=== PATIENT | female | born 1985 | race Caucasian/White ===

== ENCOUNTER → 2021-10-22 07:11 | Outpatient (CLI) | payer OTHER, SELFPAY ==
--- NOTE | 2021-10-22 07:14 | DI.US.S_ITS ---
PROCEDURE: US OB >= 14 WEEKS FETUS INDICATIONS: ANATOMY OUTSIDE/PRIOR DATING DATA: transfer T5 embryo on 06/11/2021. Estimated date of delivery 02/27/2022. First dating scan (date and location): 10/22/2021 [facility]. Estimated date of delivery (CIARAN) from first dating scan: 02/23/2022 The calculations are made using the clinical ( transfer) CIARAN of 02/27/2022. TECHNIQUE: Real-time scanning was performed of the fetus, with image documentation and biometric measurements. COMPARISON: None. FINDINGS: General: A single living intrauterine gestation is present. Presentation: Vertex. Placenta: Placental position is posterior, without previa. Amniotic fluid index: 11.7 cm, normal range is 5-24 cm. Single deepest vertical pocket is 4.5 cm. heart rate: 139 beats per minute. Maternal cervical canal: 3.9 cm long. Normal lower limit is 2.5 cm. biometrics: Biparietal diameter: 5.3 cm, 22 weeks 0 days Head circumference: 19.8 cm, 22 weeks 0 days Abdominal circumference: 17.8 cm, 22 weeks 5 days Femur length: 3.9 cm, 22 weeks 3 days Clinically estimated gestational age: 21 weeks 5 days Composite gestational age from present scan: 22 weeks 2 days Estimated weight and percentile: 506 g, 82 percentile Anatomic survey: Neuro: Ventricles are non-dilated at less than 10 mm. Cisterna magna is normal at 3-11 mm. Cerebellum is normal in size and morphology. Nuchal skin fold: Normal at less than 6 mm between 14-21 weeks gestational age. Face: Nose and lips, facial profile are normal. Spine: No evidence for spina bifida. Heart: 4-chambered heart is present, with normal ventricular outflow tracts. Diaphragm: Diaphragm is intact. Stomach: Left-sided stomach is present. Kidneys: No hydronephrosis. Normal is less than 5 mm in 2nd trimester, less than 7 mm in 3rd trimester. Cord: 3-vessel cord has orthotopic insertion. Bladder: Normal in size. Extremities: All 4 extremities identified. IMPRESSION: 1. Morgan living intrauterine at 22 weeks 2 days based on today's ultrasound. This is concordant with the prior clinical dating. Fetus is in the 80 second percentile for weight. 2. Normal placenta and amniotic fluid. 3. Normal and complete anatomic survey. We strive to produce accurate, complete, and clear reports of imaging services. To assist us in improving patient care, this report was composed using standard report templates and voice recognition software. Therefore, it may contain abnormal punctuation, insertions and/or omissions. Occasional wrong-word or sound-alike substitutions may occur. Though we review the report and make efforts to correct it, we do recommend that the report be read carefully in proper context to recognize any text inaccuracies. Dictated by: Jordi Mao M.D. on 10/22/2021 at 9:14 Approved by: Jordi Mao M.D. on 10/22/2021 at 9:21
== END ==
PROVIDERS: PCP Nurse Practitioner Family; Referring Provider Obstetrics & Gynecology; Visit Provider Obstetrics & Gynecology
DX: Z34.82 Encounter for supervision of other normal pregnancy, second trimester (principal); Z3A.22 22 weeks gestation of pregnancy
CPT/HCPCS: 76811

== ENCOUNTER → 2021-11-18 11:08 | Outpatient (CLI) | payer OTHER, SELFPAY ==
[2021-11-18 12:05] LABS: Add Manual Diff / Slide Review NO; Basophils Absolute Auto 0 /uL (0-100); Basophils Percent Auto 0.2 % (0-2); Eosinophils Absolute Auto 0 /uL (0-450); Eosinophils Percent Auto 0.5 % (2-4); Hemoglobin 11.6 g/dL (12.0-16.0); Lymphocytes Absolute Auto 1900 /uL (1100-4500); Lymphocytes Percent Auto 22.3 % (25-40); Mean Corpuscular HGB Conc 34.2 % (30-36); Mean Corpuscular Hemoglobin 28.8 PG (26-34); Mean Corpuscular Volume 84.2 fL (80-100); Monocytes Absolute Auto 500 /uL (0-900); Monocytes Percent Auto 5.8 % (3-14); Neutrophils Absolute Auto 6100 /uL (1500-7000); Neutrophils Percent Auto 71.2 % (50-75); Platelet Count 172 X10^3/uL (150-400); Red Blood Cell Count 4.03 X10^6/uL (4.0-5.2); Red Cell Distribution Width 14.2 % (11.6-14.8); White Blood Cell Count 8.5 X10^3/uL (4.5-11.0)
[2021-11-18 13:52] LABS: Free T4, Direct Thyroxine 0.88 ng/dL (0.78-2.19)
[2021-11-18 14:06] LABS: Thyroid Stimulating Hormone 1.99 uIU/mL (0.47-4.68)
== END ==
PROVIDERS: PCP Nurse Practitioner Family; Referring Provider Obstetrics & Gynecology; Visit Provider Obstetrics & Gynecology
DX: Z34.82 Encounter for supervision of other normal pregnancy, second trimester; E03.9 Hypothyroidism, unspecified
CPT/HCPCS: 36415; 84439; 84443; 85025

== ENCOUNTER → 2021-12-05 12:24 | Outpatient (CLI) | payer OTHER, SELFPAY ==
[2021-12-05 14:08] LABS: Hematocrit 34.3 % (36-46); Hemoglobin 11.5 g/dL (12.0-16.0)
[2021-12-05 14:26] LABS: GTT (PREG) 1 Hour PP 50gm Dose 105 mg/dL (76-139)
== END ==
PROVIDERS: PCP Nurse Practitioner Family; Referring Provider Obstetrics & Gynecology; Visit Provider Obstetrics & Gynecology
DX: Z34.82 Encounter for supervision of other normal pregnancy, second trimester (principal); Z3A.26 26 weeks gestation of pregnancy
CPT/HCPCS: 36415; 82950; 85014; 85018

== ENCOUNTER → 2022-02-03 13:23 | Outpatient (CLI) | payer OTHER, SELFPAY ==
[2022-02-04 13:55] LABS: Strep Grp B PCR NEG for Grp B Strep
== END ==
PROVIDERS: PCP Nurse Practitioner Family; Visit Provider Obstetrics & Gynecology
DX: Z34.83 Encounter for supervision of other normal pregnancy, third trimester (principal); Z3A.36 36 weeks gestation of pregnancy
CPT/HCPCS: 87653

== ENCOUNTER 2022-02-10 10:57 | Outpatient (CLI) | payer OTHER, SELFPAY ==
--- NOTE | 2022-02-10 11:40 | PM.OBTRLD ---
Visit Information Visit Information Date of evaluation: 02/10/22 Primary OB Provider: Emelyn Albrecht Reason for Evaluation: Yes non-stress test non-stress test reason: decreased movement Comments/Additional reasons for admission: 36yo P1 @37 weeks gestation s/p 8/8 BPP, for NST for decreased movement x1 week. Vital Signs Vital Signs: 115/70, HR 72 PFSH Medical History (Updated 11/17/21 @ 13:11 by Romelia Elena) Hypothyroid (~2016) Mononucleosis (~2003) Shingles (~1998) Surgical History (Updated 11/17/21 @ 13:11 by Romelia Elena) Anesthesia delivery delivered (~02/2019) H/O dilation and curettage (~12/2020) History of tonsillectomy (~2003) Uterine polyp (~05/2021) [place] teeth extracted (~01/2004) Family History (Updated 11/17/21 @ 13:13 by Romelia Elena) Mother No problems noted. Father Mitral valve disorder Hypothyroid Heart murmur Grandmother Type 2 diabetes, diet controlled Grandfather Complication of cardiac bypass Grandmother Status post cardiac surgery Breast cancer History of mastectomy, total Grandfather Colon cancer Social History marital status: number of children: 1 household members: spouse and children lives independently: Yes caregiver/support person: No housing: house pets and animals: Yes (1 dog, no cats. ) education level: college (BS Engineering) occupational status: employed (from home.) current occupational exposures/hazards: No lora/methodist: [employer] special lora needs: No seatbelt use: always do you feel safe at home: Yes Smoking Status: Never smoker second hand exposure: No alcohol intake: former (Pre-, a drink or two every other week or so. ) substance use type: does not use during the past year weight has: increased > 10 lbs well-balanced diet: about half the time (not as good last 4-6 weeks, during move & transition. Informed about good choices.) daily servings fruits/ve or more times/day caffeine: Yes (1 1/2 caffeine coffee or 2 tea.) frequency: does not exercise Evaluation Evaluation Baseline heart rate: 130 Variability: Moderate (11-25) monitor accelerations: Present Monitor Decelerations: Absent Category of Tracing: Reactive Status: Category l Diagnosis, Plan/Disposition Plan/Disposition Plan: Home with routine precautions. OB Disposition: home
== END 2022-02-10 11:42 | disposition home or self-care (01) ==
LOC: OB 02-11 08:03
PROVIDERS: PCP Nurse Practitioner Family; Referring Provider Obstetrics & Gynecology; Visit Provider Obstetrics & Gynecology
DX: O36.8130 Decreased fetal movements, third trimester, not applicable or unspecified (principal); Z3A.37 37 weeks gestation of pregnancy
CPT/HCPCS: 59025; G0378; G0379

== ENCOUNTER 2022-02-21 05:46 | Inpatient (IN) | payer OTHER, SELFPAY ==
[2022-02-21 06:40] LABS: Add Manual Diff / Slide Review NO; Basophils Absolute Auto 100 /uL (0-100); Basophils Percent Auto 0.7 % (0-2); Eosinophils Absolute Auto 100 /uL (0-450); Eosinophils Percent Auto 0.9 % (2-4); Hematocrit 33.1 % (36-46); Hemoglobin 11.2 g/dL (12.0-16.0); Lymphocytes Absolute Auto 2500 /uL (1100-4500); Mean Corpuscular HGB Conc 33.9 % (30-36); Mean Corpuscular Hemoglobin 27.3 PG (26-34); Mean Corpuscular Volume 80.5 fL (80-100); Monocytes Absolute Auto 700 /uL (0-900); Neutrophils Absolute Auto 5700 /uL (1500-7000); Neutrophils Percent Auto 62.4 % (50-75); Platelet Count 207 X10^3/uL (150-400); Red Blood Cell Count 4.11 X10^6/uL (4.0-5.2); Red Cell Distribution Width 15.4 % (11.6-14.8); White Blood Cell Count 9.1 X10^3/uL (4.5-11.0)
[2022-02-21 07:02] LABS: COVID19 -Nasal RAPID Negative (Negative)
[2022-02-21] MEDS: LACTATED RINGERS 1,000 ML 100 ML IV ×2 (07:30→08:01)
--- NOTE | 2022-02-21 07:44 | P.HPOB_ITS ---
OB HPI Date/Time Date of admission: 02/21/22 Date Patient Seen: 02/21/22 Time Patient Seen: 07:44 History of Present Condition Chief complaint: INPT Date of Last Menstrual Period: 03/04/22 CIARAN Calculator Estimated Delivery Date Method Current WG Current Estimate 02/27/22 Manual 39w 1d 5 day FET ( IVF) Other Estimates 01/30/22 LMP (Certain) 43w 1d 03/04/22 Conception 38w 3d Estimated Gestational Age (weeks): 39 : 3 Para: 1 Narrative: This patient is a 36yo @39+1 presenting for a scheduled repeat CS. Pat ient reports feeling well with no contractions, good movement, no LOF or VB, no other symptoms or concerns. Patient has history of PPH in the setting of long labor with 1st CS and incomplete SAB in second . History of hypothyroidism. No other contributory history. care: good care Dating criteria OB: based on 1st trimester US only Ultrasounds: normal 1st trimester US and normal mid trimester US Obstetrical complications: none Medical complications OB: none Indications Operative indications ( section): previous uterine surgery Preadmission Labs Last OB Lab Results: Blood Type B Positive 02/21/22 06:15 02/21/22 Antibody Screen Negative 02/21/22 06:15 02/21/22 Hematocrit 33.1 % (36-46) L 02/21/22 06:15 02/21/22 Hemoglobin 11.2 g/dL (12.0-16.0) L 02/21/22 06:15 02/21/22 Glucose 1 Hour 105 mg/dL (76-139) 12/05/21 13:43 12/05/21 Group B Streptococcus (PCR) Neg for grp b strep 02/03/22 13:23 02/03/22 -: Chlamydia screen: negative, Gonorrhea screen: negative and Urine: negative Genetic Screens: Cell-free DNA: Normal External Labs -: Urine: negative Prior (ies) Past Pregnancies Del. Date GA/Weeks Labor Lgth Wt Sex Route Outcome Anesthesia Place Delv Breastfeed Preg Comp Name 02/02/19 39.4 7 8 lb 4 oz Female live - full t erm epidural [facility], [place] 6 mos, low supply hemorrha ge failure to progress Vonnie 11/05/20 spontaneous spontaneous Delivery Date: 02/02/19 Last Updated by: April Navarrete R.N. Induction for LGA. Cytotec & Pitocin, pushed 7 hrs, failure to descend, to C/S. Pt reported heavy bleeding during surgery, low BPs. Delivery Date: 11/05/20 Last Updated by: April Navarrete R.N. SAB w D&C on 12/03/20: Heavy bleeding, needed 3 Units PRBCs, 2L NS. Suspected clotting issue? Evaluation Evaluation Baseline heart rate: 125 Variability: Moderate (11-25) monitor accelerations: Present Monitor Decelerations: Absent Category of Tracing: Reactive Status: Category l PFSH Medical History Hypothyroid (~2016) Mononucleosis (~2003) Shingles (~1998) Surgical History Anesthesia delivery delivered (~02/2019) H/O dilation and curettage (~12/2020) History of tonsillectomy (~2003) Uterine polyp (~05/2021) [place] teeth extracted (~01/2004) Family History Mother No problems noted. Father Mitral valve disorder Hypothyroid Heart murmur Grandmother Type 2 diabetes, diet controlled Grandfather Complication of cardiac bypass Grandmother Status post cardiac surgery Breast cancer History of mastectomy, total Grandfather Colon cancer Social History marital status: number of children: 1 household members: spouse and children lives independently: Yes caregiver/support person: No housing: house pets and animals: Yes (1 dog, no cats. ) education level: college (BS Engineering) occupational status: employed (from home.) current occupational exposures/hazards: No lora/restorationism: Muslim special lora needs: No seatbelt use: always do you feel safe at home: Yes Smoking Status: Never smoker second hand exposure: No alcohol intake: former (Pre-, a drink or two every other week or so. ) substance use type: does not use during the past year weight has: increased > 10 lbs well-balanced diet: about half the time (not as good last 4-6 weeks, during move & transition. Informed about good choices.) daily servings fruits/ve or more times/day caffeine: Yes (1 1/2 caffeine coffee or 2 tea.) frequency: does not exercise Meds Home Medications and Allergies Home Medications Medication Instructions Recorded Confirmed Type levothyroxine 112 mcg tablet 137 mcg PO DAILY tab 10/12/21 02/21/22 History (Synthroid) vits 75-iron 28 mg-folic pkg PO 10/12/21 02/10/22 History acid 800 mcg-omega-3 oral combo pack (One A Day Women's DHA) calcium carbonate [Tums] PO 02/10/22 02/10/22 History Allergies Allergy/AdvReac Type Severity Reaction Status Date / Time No Known Drug Allergies Allergy Verified 01/27/22 10:35 Review of Systems Constitutional Constitutional: Reports system reviewed and no additional complaints, except as documented Cardiovascular Cardiovascular: Reports system reviewed and no additional complaints, except as documented Respiratory Respiratory: Reports system reviewed and no additional complaints, except as documented Gastrointestinal Gastrointestinal: Reports system reviewed and no additional complaints, except as documented Musculoskeletal Musculoskeletal: Reports system reviewed and no additional complaints, except as documented Neurologic Neurologic: Reports system reviewed and no additional complaints, except as documented OB Exam Resp Effort & Inspection: normal respiratory effort Auscultation: clear to auscultation bilaterally Cardio Rate: regular rate Rhythm: regular rhythm Extremities Lower extremity: Yes normal to inspection Objective Labs Result Diagrams: 02/21/22 06:15 Labs: Laboratory Results - last 24 hr 02/21/22 02/21/22 02/21/22 06:00 06:15 06:15 WBC 9.1 RBC 4.11 Hgb 11.2 L Hct 33.1 L MCV 80.5 MCH 27.3 MCHC 33.9 RDW 15.4 H Plt Count 207 Neut % (Auto) 62.4 Lymph % (Auto) 28.0 [place] % (Auto) 8.0 Eos % (Auto) 0.9 L Baso % (Auto) 0.7 Neut # (Auto) 5700 Lymph # (Auto) 2500 [place] # (Auto) 700 Eos # (Auto) 100 Baso # (Auto) 100 SARS-CoV-2 (PCR) Negative Blood Type B Positive Antibody Screen Negative Assessment and Plan Assessment and Plan Assessment and Plan narrative: This patient is admitted for a scheduled repeat section. Given her history, we are preparing for a PPH and have TXA available to be given with delivery of the . Admitted otherwise per routine CS protocol.
--- NOTE | 2022-02-21 07:53 | SUR.OPER ---
Supine on Padded OR bed, head on pillow, safety belt at thigh, arms secured on padded arm boards at <90 degrees abduction. Bump under right buttock. Legs uncrossed with pillow under knees, gel pad to heels, tape over blanket to lower legs.
[2022-02-21] MEDS: CEFAZOLIN 2 GM/20 ML SYRINGE IV (08:00)
[2022-02-21] MEDS: TRANEXAMIC ACID 1,000 MG in SODIUM CHLORIDE 0.9% 100 ML 200 MG IV (08:19)
--- NOTE | 2022-02-21 08:29 | SUR.OPER ---
VIABLE FEMALE INFANT DELIVERED AT 0820. CORD BLOOD AND PLACENTA TO OB WITH RN
[2022-02-21 09:14] VITALS: BP 99/59; PULSE 65; RESP 14; TEMP 36.1
--- NOTE | 2022-02-21 09:17 | P.OP_ITS ---
Operative Date/Time/Diagnoses Date of procedure: 02/21/22 Time of procedure: 08:15 Pre-op diagnosis: repeat section Post-op diagnosis: same Procedure & Clinicians Procedure: repeat section Same procedure as scheduled: Yes Indications: prior section, 39 weeks Surgeon: Emelyn Albrecht Well Head Pumper: Asha Deleon Reason for Well Head Pumper: Assistance with retraction, delivery of the infant, and suturing Anesthesia Type: Spinal Operative Notes Findings: Female in cephalic presentation. Apgars 9+9, weight 8#6 Closure Type: primary Specimen(s): cord blood Intraoperative meds administered: Ketorolac, Pitocin and Tranexamic acid Estimated Blood Loss (mL): 500 Procedure in detail: EBL: 500ccs Fluids:2700ccs LR UOP: 400ccs clear yellow urine Findings: Female in cephalic presentation, Apgars 9+9, weight 8#6, normal uterus, tubes, ovaries. Small amount of scar tissue throughout. Procedures: The patient was taken to the operating room where spinal anesthesia was placed and found to be adequate. She was prepped and draped in the normal sterile fashion in the dorsal supine position with a leftward tilt. A Pfannenstiel skin incision was made with a scalpel and carried through to the underlying layer of fascia. The fascia was incised in the midline and the incision extended laterally with Ryder scissors. The superior aspect of this incision was grasped with Clint clamps, elevated, and the underlying rectus muscles dissected off bluntly and with the curved Ryder scissors. Attention was then turned to the inferior aspect of this incision which, in a similar fashion, was grasped, tented up with the Clint clamps, and the rectus muscles dissected off bluntly and with the curved Ryder scissors. The rectus muscles were then in the midline, and the peritoneum identified, tented up, and entered bluntly with a Emelyn clamp. The peritoneal incision was extended superiorly and inferiorly with good visualization of the bladder. The bladder blade was inserted and the vesicouterine peritoneum identified, grasped with pickups, and entered sharply with the Metzenbaum scissors. This incision was extended laterally, and the bladder flap created digitally. The bladder blade was then reinserted and the lower uterine segment incised in transverse fashion with the scalpel. The uterine incision was bluntly extended laterally. The bladder blade was removed, and the infant's head delivered atraumatically with assistance of a vacuum. After 45 seconds of delayed cord clamping, the cord was clamped and cut. The nose and mouth were suctioned as needed with a bulb syringe, and the was handed off to awaiting pediatricians. The placenta was then removed spontaneously, and the uterus was exteriorized and cleared of all clots and debris. The uterine incision was repaired with 1-0 chromic in a running, locked fashion a 2nd layer of the same suture was used to obtain excellent hemostasis. The uterus was returned to the abdomen, and the gutters were cleared of all clots and debris. The bladder flap was closed with 2-0 Vicryl in a running fashion, the peritoneum was closed with 3-0 Vicryl, and the fascia reapproximated with 0 Vicryl in a running fashion. The subcutaneous layer was placed with 3 0 Vicryl in an interrupted fashion and the skin was closed with 4-0 biosyn in a running fashion. The patient tolerated the procedure well. sponge lap and needle counts were correct x2. 2 g of Ancef were given at commencement of the case. The patient was taken to the recovery room in stable condition. Complications: none Baby Ava: Gender: Female Presentation: vertex Position: Occiput Posterior Placental Delivery Description: Manual Removal Cord Vessel Description: 3 Vessels score (1 min): 9 score (5 min): 9 weight: 8 lb 6 oz Post-operative Condition: stable Disposition: PACU Aftercare: routine postop
[2022-02-21 09:19] VITALS: BP 94/57; PULSE 63; RESP 14; O2SAT 97
[2022-02-21 09:39] VITALS: BP 90/54; PULSE 65; RESP 13; O2SAT 100
[2022-02-21 09:49] VITALS: BP 94/55; PULSE 68; RESP 13; TEMP 36.3
[2022-02-21] MEDS: KETOROLAC 30 MG/ML VIAL IV ×2 (14:40→20:47)
[2022-02-21] MEDS: LEVOTHYROXINE 137 MCG TABLET PO (15:57)
[2022-02-22] MEDS: KETOROLAC 30 MG/ML VIAL IV (02:54)
[2022-02-22] MEDS: LEVOTHYROXINE 137 MCG TABLET PO (06:02)
[2022-02-22 06:42] LABS: Add Manual Diff / Slide Review NO; Basophils Absolute Auto 0 /uL (0-100); Basophils Percent Auto 0.3 % (0-2); Eosinophils Absolute Auto 100 /uL (0-450); Eosinophils Percent Auto 0.6 % (2-4); Hematocrit 25.7 % (36-46); Hemoglobin 8.7 g/dL (12.0-16.0); Lymphocytes Absolute Auto 2600 /uL (1100-4500); Lymphocytes Percent Auto 24.6 % (25-40); Mean Corpuscular HGB Conc 33.9 % (30-36); Mean Corpuscular Hemoglobin 27.3 PG (26-34); Mean Corpuscular Volume 80.7 fL (80-100); Monocytes Absolute Auto 800 /uL (0-900); Monocytes Percent Auto 7.9 % (3-14); Neutrophils Absolute Auto 7100 /uL (1500-7000); Neutrophils Percent Auto 66.6 % (50-75); Platelet Count 165 X10^3/uL (150-400); Red Blood Cell Count 3.19 X10^6/uL (4.0-5.2); Red Cell Distribution Width 15.7 % (11.6-14.8); White Blood Cell Count 10.6 X10^3/uL (4.5-11.0)
--- NOTE | 2022-02-22 07:47 | P.PNOB_ITS ---
Subjective - OB Subjective Patient comments: no complaints and pain well controlled baby status: doing well feeding status: exclusively breast feeding Narrative: POD#!: Doing well overnight aside from some difficulty voiding requiring straight cath x 1. Voiding well now, passing gas, tolerating regulardiet Date Patient Seen: 02/22/22 Time Patient Seen: 07:47 Exam Vital Signs (past 8 hours): Oxygen Delivery Method Room Air Oxygen Flow Rate 96 Const General: cooperative and comfortable Nutritional Appearance: average body habitus Orientation: alert and oriented x3 HENMT Head: normal to inspection, atraumatic and abrasion Ears: hearing grossly normal bilaterally Face and sinus: face symmetric Eyes General: appearance normal, both eyes and all related structures Conjunctivae: conjunctivae normal Sclera: sclerae normal EOM: EOM intact bilaterally Neck Neck: normal visual inspection Resp Effort & Inspection: normal respiratory effort and able to speak in complete sentences Auscultation: clear to auscultation bilaterally Cardio Rate: regular rate Rhythm: regular rhythm Heart Sounds: S1 normal, S2 normal and no murmurs GI Inspection: normal to inspection and incision (Surgical dressings clean and dry) Palpation: soft, no hepatosplenomegaly and tender (Mild, diffuse postsurgical tenderness) Auscultation: hypoactive bowel sounds External Female Exam: other (Minimal lochia) Extrem General: no calf tenderness Psych Appearance: grossly normal Mental Status: mental status grossly normal Speech and Movement: speech and movement normal Mood: congruent mood Affect: normal affect Attitude: cooperative Thought Process: normal Thought Content: normal Judgment: judgment good Objective Labs Result Diagrams: 02/22/22 06:30 Labs: Laboratory Results - last 24 hr 02/22/22 06:30 WBC 10.6 RBC 3.19 L Hgb 8.7 L Hct 25.7 L MCV 80.7 MCH 27.3 MCHC 33.9 RDW 15.7 H Plt Count 165 Neut % (Auto) 66.6 Lymph % (Auto) 24.6 L [place] % (Auto) 7.9 Eos % (Auto) 0.6 L Baso % (Auto) 0.3 Neut # (Auto) 7100 H Lymph # (Auto) 2600 [place] # (Auto) 800 Eos # (Auto) 100 Baso # (Auto) 0 Assessment & Plan Assessment and Plan (1) delivery delivered: Status: Acute (2) Hypothyroid: Status: Acute (3) Anemia due to blood loss, acute: Status: Acute Plan day: 1 plan OB: routine postop care Comments: Will infuse Fe Sucrose 200 mg IV today due to post-op anemia. Time Spent With Patient Time: Total time spent is greater than 50% in coordination of care (as documented) at patient's floor/unit and/or counseling patient: Time with patient: less than 15 minutes
[2022-02-22] MEDS: DOCUSATE 100 MG CAPSULE 200 MG PO (10:33)
[2022-02-22] MEDS: IBUPROFEN 600 MG TABLET PO ×3 (10:33→23:48)
[2022-02-22] MEDS: IRON SUCROSE 200 MG in SODIUM CHLORIDE 0.9% 100 ML 220 MG IV (12:20)
[2022-02-22] MEDS: ACETAMINOPHEN 325 MG TABLET 975 MG PO (23:50)
[2022-02-23] MEDS: IBUPROFEN 600 MG TABLET PO (06:11)
[2022-02-23] MEDS: LEVOTHYROXINE 137 MCG TABLET PO (06:11)
[2022-02-23] MEDS: ACETAMINOPHEN 325 MG TABLET 975 MG PO (08:04)
[2022-02-23] MEDS: DOCUSATE 100 MG CAPSULE 200 MG PO (08:04)
--- NOTE | 2022-02-23 09:26 | PM.OBDS.1 ---
Discharge Providers Provider Date of admission: 02/21/22 05:46 Discharge Date: 02/23/22 Primary care physician: TEJ Rodriguez Consults: 02/21/22 09:52 Consult to Facility Rehab Director Routine Comment: Discharge provider: Brendan Mauricio MD Summary Hospital Course Date Patient Seen: 02/23/22 Time Patient Seen: 09:26 Diagnoses: delivery, delivered (Repeat due to Prior ) Hypothyroidism Anemia, chronic and acute due blood loss Hospital Course: [place] was admitted on 02/21/2022 for repeat section. She underwent a repeat section via low transverse cervical incision on the morning of 02/21/2022 and the details of that procedure are well summarized on the operative note of that date. Following the surgery the patient has done extremely well with prompt return of bowel and bladder function, she is ambulating independently, tolerating a regular diet, and her pain is well controlled with oral pain medications. First morning postop hemoglobin and hematocrit are 8.7 and 25.7 which is consistent with our operative losses but the patient was mildly anemic prior to the surgery and therefore received a single infusion of iron sucrose 200 mg prior to discharge. The patient will be discharged at this time in an afebrile normotensive condition to home with medications to include Oxy code own 5 mg p.o. Q 6 hours as needed pain dispense 14, and she will continue both her vitamins as well as her levothyroxine daily. Prior to discharge the patient was counseled regarding precautionary symptoms, medications, limitations of activity, and plans for follow-up which will be in 1 week for an incision check with Dr. Albrecht. Peripartum Data Delivery Method: Section Laceration Description: None Episiotomy description: None complications: none Discharge Diagnosis (1) delivery delivered: Status: Acute (2) Hypothyroid: Status: Acute (3) Anemia due to blood loss, acute: Status: Acute Status at Discharge Cognitive/behavioral status at discharge: oriented Functional status at discharge: independent ambulation Overall status at discharge: patient is progressing back to baseline Time Spent with Patient Time attestation: Total time spent providing and/or coordinating discharge services: Time spent: Less than 30 minutes Objective Labs Result Diagrams: 02/22/22 06:30 Exam Vital Signs (past 8 hours): Oxygen Delivery Method Room Air Oxygen Flow Rate 96 Const General: cooperative and comfortable Nutritional Appearance: average body habitus Orientation: alert and oriented x3 HENMT Head: normal to inspection, atraumatic and abrasion Ears: hearing grossly normal bilaterally Face and sinus: face symmetric Eyes General: appearance normal, both eyes and all related structures Conjunctivae: conjunctivae normal Sclera: sclerae normal EOM: EOM intact bilaterally Neck Neck: normal visual inspection Resp Effort & Inspection: normal respiratory effort and able to speak in complete sentences Auscultation: clear to auscultation bilaterally Cardio Rate: regular rate Rhythm: regular rhythm Heart Sounds: S1 normal, S2 normal and no murmurs GI Inspection: normal to inspection and incision (Surgical dressing clean and dry) Palpation: soft, no hepatosplenomegaly and tender (Mild, diffuse postsurgical tenderness) External Female Exam: other (No significant bleeding noted) Extrem General: no calf tenderness Psych Appearance: grossly normal Mental Status: mental status grossly normal Speech and Movement: speech and movement normal Mood: congruent mood Affect: normal affect Attitude: cooperative Thought Process: normal Thought Content: normal Judgment: judgment good Discharge Plan Discharge Plan Patient Disposition: Home Provider Discharge Comment: Please review the written instructions you received when you were discharged from the hospital. Your follow-up appointment with Dr. Albrecht will be next week but if you have any questions, concerns, or problems, please reach out to Dr. Albrecht either through the office phone or via the patient portal. Discharge orders & Medications Prescriptions: New oxycodone 5 mg tablet 5 mg PO Q6H PRN (Reason: pain) Qty: 14 0RF Rx Instructions: Take as often as every 6 hours for pain. levothyroxine 137 mcg capsule 137 mcg PO DAILY Qty: 20 0RF Rx Instructions: Take once daily. Continued One A Day Women's DHA 28 mg iron- 800 mcg combo pack PO 0RF levothyroxine [Synthroid] 112 mcg tablet 137 mcg PO DAILY 0RF calcium carbonate [Tums] PO 0RF Follow up/Referrals: Emelyn Albrecht MD [Physician] - 1 Week (Post op follow-up on February 28 @ 1pm. 6 week follow-up on April 04 @ 2pm. ) Discharge Health Status Multidrug resistant organism: No MDRO Diet/Activity/Treatments Diet: Diet as Tolerated and Regular Activity: Nothing in the vagina for 6 weeks. Avoid lifting more than 10 pounds for 6 weeks. If you have increasing bleeding, fevers, chills, nausea, dizziness, headaches or visual changes, or any other symptoms, call or come to the emergency room. Other treatments: OTC Tylenol/ibuprofen PRN, and OTC iron with vitamin C x 30 days Skin/Wound/Dressing Care Report to your healthcare provider any signs of infection, such as:: chills, fever, night sweats, increased pain, unusual drainage and unusual redness Dressing: To be removed in 1 week. OK to shower. Visit Report/Discharge Packet Instructions: , Diet, DI for and Nipple Soreness Stand Alone Forms: Discharge: Care Discharge Data Primary Care Provider: Heather Parish
== END 2022-02-23 11:40 | disposition home or self-care (01) | DRG 787 ==
PROVIDERS: Admitting Provider Obstetrics & Gynecology; PCP Nurse Practitioner Family; Referring Provider Obstetrics & Gynecology; Visit Provider Obstetrics & Gynecology
PROC: 10D00Z1 Extraction of Products of Conception, Low, Open Approach (ICD-10-PCS; CPT 59514; principal; 2022-02-21 07:45)
DX: O34.211 Maternal care for low transverse scar from previous cesarean delivery (principal); D62 Acute posthemorrhagic anemia; Z3A.39 39 weeks gestation of pregnancy; Z37.0 Single live birth; O99.284 Endocrine, nutritional and metabolic diseases complicating childbirth; E03.9 Hypothyroidism, unspecified; O99.02 Anemia complicating childbirth; Z20.822 Contact with and (suspected) exposure to COVID-19
CPT/HCPCS: 36415; 59510; 59514; 85025; 86850; 86900; 86901; 87635; C9803; J0690; J1100; J1756; J1885; J2274; J2405; J2590

== ENCOUNTER → 2022-04-29 09:31 | Outpatient (CLI) | payer OTHER, SELFPAY ==
[2022-04-29 10:50] LABS: Free T4, Direct Thyroxine 0.83 ng/dL (0.78-2.19)
[2022-04-29 11:03] LABS: Thyroid Stimulating Hormone 3.74 uIU/mL (0.47-4.68)
== END ==
PROVIDERS: PCP Nurse Practitioner Family; Referring Provider Obstetrics & Gynecology; Visit Provider Obstetrics & Gynecology
DX: E03.9 Hypothyroidism, unspecified (principal)
CPT/HCPCS: 36415; 84439; 84443